=== PATIENT | female | born 1935 | race Caucasian/White ===

== ENCOUNTER → 2017-09-28 | Outpatient (CLI) | payer MEDICARE, BC ==
--- NOTE | 2017-09-28 17:39 | PCVCIMAG ---
EXAM: DUPLEX ULTRASOUND OF THE RIGHT GROIN INDICATION: Groin swelling and pain. FINDINGS: No pseudoaneurysm is present. The common femoral artery and vein are patent. No arteriovenous fistula is seen. IMPRESSION: Study is negative for pseudoaneurysm. Incidental note is made of a 1.0 x 1.4 x 1.9 cm subcutaneous hematoma. LOC:[place] [id number]
== END | disposition home or self-care (01) ==
LOC: PCVCIMAG 13:37
PROVIDERS: ATTEND Internal Medicine Cardiovascular Disease
DX: Z48.812 Encounter for surgical aftercare following surgery on the circulatory system (principal); R19.09 Other intra-abdominal and pelvic swelling, mass and lump; R10.31 Right lower quadrant pain; R60.9 Edema, unspecified
CPT/HCPCS: 93926

== ENCOUNTER → 2017-12-28 | Outpatient (CLI) | payer MEDICARE, BC ==
--- NOTE | 2017-12-28 16:18 | PCVCIMAG ---
EXAM: BILATERAL RENAL ULTRASOUND AND BILATERAL RENAL DUPLEX INDICATION: Hypertension FINDINGS: Right kidney: Length measures 11.9 cm. No hydronephrosis or extensive renal scarring. Right renal duplex: Adequate technical quality. No sonographic evidence of renal artery stenosis. The aortic to renal artery ratio is 1.4. The renal vein is patent. Left kidney: Length measures 11.5 cm. No hydronephrosis or extensive renal scarring. Left renal duplex: Adequate technical quality. No sonographic evidence of renal artery stenosis. The aortic to renal artery ratio is 1.3. The renal vein is patent. Bladder: No obvious abnormalities. IMPRESSION: No significant renal artery stenosis. No hydronephrosis bilaterally. LOC:[id number]
--- NOTE | 2017-12-28 17:03 | PCVCIMAG ---
APPROVED REPORT Study performed: 12/28/2017 15:27:00 EXAM: Limited 2D and color flow Echocardiogram Patient Location: Echo lab BSA: 1.91 HR: 65 bpmBP: 140/82 mmHg Rhythm: NSR Other Information Study Quality: Adequate Indications CAD Myocardial infarction, s/p coronary stents 2D Dimensions IVSd: 11.39 (7-11mm) LVDd: 38.24 mm PWd: 10.40 (7-11mm)Ascending Ao: 34.53 (22-36mm) LVDs: 28.36 (25-40mm) Left Atrium: 36.90 (27-40mm) Aortic Root: 33.10 mm LV Single Plane 4CH: 55.22 % LV Single Plane 2CH: 56.76 % Biplane EF: 55.8 % Volumes Left Atrial Volume (Systole) Single Plane 4CH: 45.94 mLSingle Plane 2CH: 46.55 mL LA ESV Index: 26.00 mL/m2 Aortic Valve AoV Peak [place].: 1.39 m/s AO Peak Gr.: 7.78 mmHg Tricuspid Valve TR Peak [place].: 2.27 m/s TR Peak Gr.: 20.63 mmHg Left Ventricle The left ventricle is normal size. There is normal LV segmental wall motion. There is normal left ventricular wall thickness. Left ventricular systolic function is normal. The left ventricular ejection fraction is within the normal range. LVEF is 55%. Right Ventricle The right ventricle is normal size. The right ventricular systolic function is normal. Atria The left atrium size is normal. The right atrium size is normal. Aortic Valve The aortic valve is normal in structure. No aortic regurgitation is present. There is no aortic valvular stenosis. Mitral Valve The mitral valve is normal in structure. Mild mitral regurgitation. No evidence of mitral valve stenosis. Tricuspid Valve The tricuspid valve is normal in structure. Mild tricuspid regurgitation with PAP of 28 mmHg. Pulmonic Valve The pulmonary valve is normal in structure. There is no pulmonic valvular regurgitation. Great Vessels The aortic root is normal in size. IVC is normal in size and collapses >50% with inspiration. Pericardium There is no pericardial effusion. There is no pleural effusion. <Conclusion> The left ventricle is normal size. Left ventricular systolic function is normal. The left ventricular ejection fraction is within the normal range. LVEF is 55%. The right ventricle is normal size. The left atrium size is normal. The aortic valve is normal in structure. Mild mitral regurgitation. Mild tricuspid regurgitation with PAP of 28 mmHg. The aortic root is normal in size. There is no pericardial effusion.
== END | disposition home or self-care (01) ==
LOC: PCVCIMAG 14:03
PROVIDERS: ATTEND Internal Medicine Cardiovascular Disease
DX: I08.1 Rheumatic disorders of both mitral and tricuspid valves (principal); I10 Essential (primary) hypertension; I25.10 Atherosclerotic heart disease of native coronary artery without angina pectoris; I21.9 Acute myocardial infarction, unspecified; E78.00 Pure hypercholesterolemia, unspecified; I70.1 Atherosclerosis of renal artery; E03.9 Hypothyroidism, unspecified; Z79.82 Long term (current) use of aspirin
CPT/HCPCS: 76770; 80061; 93005; 93308; 93975; G0463

== ENCOUNTER → 2018-09-21 | Outpatient (CLI) | payer MEDICARE, BC | END | disposition home or self-care (01) | LOC: PCVCCLINIC 16:23 | PROVIDERS: ATTEND Internal Medicine Cardiovascular Disease | DX: I25.10 Atherosclerotic heart disease of native coronary artery without angina pectoris (principal); I10 Essential (primary) hypertension; I25.2 Old myocardial infarction; E78.5 Hyperlipidemia, unspecified; R07.9 Chest pain, unspecified; R06.02 Shortness of breath; E78.00 Pure hypercholesterolemia, unspecified; E03.9 Hypothyroidism, unspecified; Z95.9 Presence of cardiac and vascular implant and graft, unspecified; Z79.899 Other long term (current) drug therapy | CPT/HCPCS: 36415; 80061; 93005; G0463 ==

== ENCOUNTER → 2018-10-18 | Outpatient (CLI) | payer MEDICARE, BC ==
[~2018-10-18] MED LIST: REGADENOSON 0.4 MG/5 ML DISP.SYRIN. IV ONE
--- NOTE | 2018-10-19 15:24 | PCVCIMAG ---
APPROVED REPORT Imaging Protocol: Rest Tc-99m/Stress Tc-99m 1 day Study performed: 10/18/2018 13:43:13 Indication: CAD, Chest pain, Dyspnea, PCI Patient Location: Out-Patient Stress Nurse: Lesli Lopez RN, Angelita Matias RN [place] Tech:Jp [id number] Ht: 5 ft 9 in Wt: 160 lbs BSA: 1.88 m2 HR: 62 bpm BP: 142/67 mmHg BMI: 23.6 Rhythm: Sinus Rhythm Medical History Medical History: Age, Hyperlipidemia, HTN, CAD, [place] Medications: Lipitor, Toprol, Zetia, Plavix Allergies: No known drug allergies Previous Cardiac Procedures: PCI Pretest Chest Pain Characteristics: No chest pain Exercise History: Sedentary Meds Held (24 hrs): Metoprolol Resting Data Rest SPECT myocardial perfusion imaging was performed in supine position 45 minutes following the intravenous injection of 11.7 mCi of Tc-99m Sestamibi. Time of rest injection: 1330 Date: 10/18/2018 Administration Route: IV Administration Site: Right AC Pharmacologic Stress Pharmacologic stress test was performed by injecting Regadenoson 0.4 mg IV push over 10-15 seconds immediately followed by the intravenous injection of 36 mCi of Tc-99m Sestamibi. Time of stress injection: 1440 Date: 10/18/2018 Administration Route: IV Administration Site: Right AC Gated Stress SPECT was performed 45 minutes after stress injection. The images were gated to evaluate regional wall motion and calculate left ventricular ejection fraction. Stress Test Details Stress Test: Pharmacologic stress testing performed using 0.4 mg of regadenoson per 5 mL given IV over 10 seconds. Reason for pharmacologic stress test: physical limitation. HRMax Heart Rate (APMHR): 137 bpm Resting HR: 62 bpmTarget HR (85% APMHR): 116 bpm Max HR Achieved: 91 bpm % of APMHR: 66 Recovery HR: 73 bpm BP Resting BP: 142/67 mmHg Max BP: 116/61 mmHg Recovery BP: 118/60 mmHg ECG Resting ECG: Sinus Rhythm Stress ECG: Sinus Rhythm, T Wave Abnormality Arrhythmia: None Recovery ECG: Sinus Rhythm Clinical Reason for Termination: Completed protocol Stress Symptoms: Abdominal Discomfort, Headache, Lightheaded Symptoms resolved with caffeine. Stress ECG Conclusion ECG: Non-ischemic Study Quality Study: Good Study Data Post stress, the left ventricular ejection was 64%.. SSS: 8 SRS: 5 SDS: 4 TID = 0.95. Perfusion No evidence of stress induced ischemia or prior myocardial infarction. Wall Motion Normal left ventricular size and function with no regional wall motion abnormalities. Nuclear Conclusion No evidence of stress induced ischemia or prior myocardial infarction. Normal left ventricular size and function with no regional wall motion abnormalities. Post stress, the left ventricular ejection was 64%. No prior study available for comparison. Interpreted by: Rajesh Lanza MD Electronically Approved: 10/18/2018 17:29:22 <Conclusion> ECG: Non-ischemic
== END | disposition home or self-care (01) ==
LOC: PCVCIMAG 13:11
PROVIDERS: ATTEND Internal Medicine Cardiovascular Disease
DX: I25.10 Atherosclerotic heart disease of native coronary artery without angina pectoris (principal); I10 Essential (primary) hypertension; I25.2 Old myocardial infarction; R06.02 Shortness of breath; R07.9 Chest pain, unspecified; Z95.9 Presence of cardiac and vascular implant and graft, unspecified
CPT/HCPCS: 78452; 93017; A9500; J2785